=== PATIENT | female | born 1975 | race Caucasian/White ===

== ENCOUNTER 2016-11-16 10:46 | Emergency (ER) | payer BC ==
--- NOTE | ~2016-11-16 | CR63 ---
[facility]. [facility] A Service of [facility] & [facility] RADIOLOGY TEXT RESULTS PATIENT: JEANNINE ARNDT LOCATION: SED : 75 UNIT #: [id number] AGE: [address]: Stlain Jules MD SEX: F ORDER DR: [id number] [place] [id number] E MR#: [id number] Acc #: [id number] NAME: JEANNINE ARNDT : 1975 SEX: F STUDY DATE/TIME: 11/16/2016 12:33 UNIT: SED ROOM: STUDY DESCRIPTION: CR Chest 2 View Attending Physician: Stalin Jules M.D. Ordering Physician: Stalin Jules M.D. Primary Care Physician: Drew Dacosta M.D. MEDICAL IMAGING REPORT This report is preliminary unless electronic signature is present. EXAM Two-view chest 11/16/2016 HISTORY 41-year-old female with left-sided chest pain status post fall 1 week ago. COMPARISON Chest 08/28/2013 FINDINGS 2 views of the chest demonstrate clear lungs. No pleural effusion or pneumothorax. Heart size and mediastinum are normal. Pulmonary vasculature normal. IMPRESSION No acute cardiopulmonary findings Dictated by... Kristopher Patino M.D. THIS IS AN ELECTRONICALLY VERIFIED REPORT Kristopher Patino M.D. at 11/17/2016 5:06 PM GENIE/beck TD: 11/16/2016 21:50 JOB #: [id number] MEDICAL IMAGING REPORT Page 1 of 1
--- NOTE | ~2016-11-16 | CT2 ---
[facility] A Service of [facility] & [facility] RADIOLOGY TEXT RESULTS PATIENT: JEANNINE ARNDT LOCATION: SED : 75 UNIT #: [id number] AGE: [address]: Stalin Jules MD SEX: F ORDER DR: [id number] [address] [address] [id number] E MR#: [id number] Acc #: [id number] NAME: JEANNINE ARNDT : 1975 SEX: F STUDY DATE/TIME: 11/16/2016 12:32 UNIT: SED ROOM: STUDY DESCRIPTION: CT Abd and Pelv W Cont Attending Physician: Stalin Jules M.D. Ordering Physician: Stalin Jules M.D. Primary Care Physician: Drew Dacosta M.D. MEDICAL IMAGING REPORT This report is preliminary unless electronic signature is present. EXAM CT abdomen and pelvis with contrast 11/16/2016 1232 hours HISTORY 41-year-old complaining of abdominal pain and swelling for 1 week. Patient had a left rib injury 1 week ago when she fell against a metal railing. Left arm numbness, bruising at left hip. COMPARISON Chest CT 10/12/2008. No prior CT abdomen. TECHNIQUE Dynamic helical CT images were obtained from the lung bases through the pubic symphysis with intravenous contrast only. Sagittal and coronal reconstructions were performed. Contrast was Isovue-370 100 mL IV. Total exam DLP 958 mGy-cm. This CT examination was performed with one or more of the following radiation dose reduction techniques: automatic exposure control, adjustment of mA and/or kV according to patient size, and iterative reconstruction. FINDINGS Images through the lung bases are clear. There is no pleural effusion or pneumothorax. There is no definite rib fracture. There is an ovoid nodule in the lateral inferior left breast measuring 2.6 x 1.6 cm. This demonstrates a central hyperdensity which could represent a calcification or a previous clip from biopsy. This is not clearly seen on the CT chest of 10/12/2008. Suggest correlation with previous mammography and/or ultrasound. If this has not been performed, I would suggest a follow up mammogram and ultrasound to assess this mass which is well circumscribed. 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 Images through the abdomen demonstrate normal appearance to the liver, spleen, pancreas and bile ducts. The gallbladder is contracted but normal [facility] A Service of [facility] & [facility] RADIOLOGY TEXT RESULTS PATIENT: JEANNINE ARNDT LOCATION: SED : 75 UNIT #: [id number] AGE: [address]: Stalin Jules MD SEX: F ORDER DR: in appearance. The adrenal glands are normal. The kidneys enhance normally. There is no mass, stone or contusion. There is no ascites or adenopathy. The abdominal aorta is normal in caliber. Stomach and small bowel are normal. The appendix is normal. There is no colonic wall thickening or colonic distension. There is moderate stool throughout the colon. CT pelvis demonstrates an anteverted uterus with intrauterine device present. There is no adnexal mass or pelvic free fluid. Bone window images demonstrate no lumbar fracture or subluxation. There is degenerative disc disease at L5-S1 with concentric disc bulging, endplate spurring. There is no fracture of the sacrum or pelvis. IMPRESSION 1. No rib, lumbar spine, pelvic or hip fracture seen. 2. No acute abnormalities are seen in the abdomen or pelvis. 3. There is a 2.6 x 1.6 cm fairly well-circumscribed soft tissue nodule in the lower lateral left breast new from CT chest 10/12/2008. It has a central hyperdensity which could represent a calcification or perhaps a marker clip from previous biopsy. Correlate with any previous workup. If not previously evaluated or biopsied, suggest followup mammogram and ultrasound to reassess. STAT * RESULT Dictated by... Luz Maria Petty M.D. THIS IS AN ELECTRONICALLY VERIFIED REPORT Luz Maria Petty M.D. at 11/16/2016 2:23 PM TOOTIE/tiago TD: 11/16/2016 13:32 JOB #: [id number] MEDICAL IMAGING REPORT Page 1 of 1
[~2016-11-16 10:46] MED LIST: IBUPROFEN PO; SYNTHROID PO; TYLENOL325 M1 PO
[2016-11-16 11:43] LABS: URINE SOURCE CLEAN CATCH
[2016-11-16 11:45] LABS: BASOPHIL# 0.1 X10e3 (0-0.3); BASOPHIL% 1.1 % (0-2.5); EOSINOPHIL% 0.6 % (0.0-7.0); HEMATOCRIT 40.3 % (35.0-45.0); HEMOGLOBIN 13.8 gm/dL (12.0-16.0); LYMPHOCYTE# 1.5 X10e3 (1.0-3.5); LYMPHOCYTE% 23.8 % (17.0-45.0); MEAN CELL VOLUME 88.9 FL (83-96); MEAN CORPUSCULAR HEMOGLOBIN 30.4 PG (28-34); MEAN CORPUSCULAR HGB CONC 34.2 g/dL (30-36); MEAN PLATELET VOLUME 8.6 FL (6.5-11.5); MONOCYTE# 0.5 X10e3 (0-1.0); MONOCYTE% 7.1 % (3.0-12.0); NEUTROPHIL# 4.3 X10e3 (1.5-7.1); NEUTROPHIL% 67.4 % (40-75); PLATELET COUNT 206 X10e3 (140-420); RED BLOOD COUNT 4.53 X10e (3.90-5.30); WHITE BLOOD COUNT 6.5 X10e3 (4.0-10.5)
[2016-11-16 11:50] LABS: URINE APPEARANCE CLEAR; URINE BILIRUBIN NEG (NEG); URINE BLOOD 1+ (NEG); URINE COLOR YELLOW; URINE GLUCOSE NEG (NORM); URINE KETONE NEG (NEG); URINE LEUKOCYTE ESTERASE NEG (NEG); URINE NITRATE NEG (NEG); URINE PH 5.5 (5-8); URINE PROTEIN NEG (NEG); URINE UROBILINOGEN 0.2 MG/DL (NORM)
[2016-11-16 11:51] LABS: DIFF IND NO
[2016-11-16 11:52] LABS: MICRO INDICATED? YES
[2016-11-16 12:04] LABS: CULTURE INDICATED? YES; URINE BACTERIA 1+ (NEG); URINE SQUAMOUS EPITHELIAL CELL MANY /[HPF]
[2016-11-16 12:12] LABS: CALCIUM SERUM 9.1 mg/dL (8.4-10.2); CREATININE SERUM 0.5 mg/dL (0.6-1.4); GLOM FILT RATE Estimated 120.2 mL/min (>60); POTASSIUM 4.1 mmol/L (3.5-5.1)
== END 2016-11-16 13:49 | disposition home or self-care (01) ==
LOC: SED 10:46
PROVIDERS: Emergency Medicine
DX: S20.212A Contusion of left front wall of thorax, initial encounter (principal); S30.1XXA Contusion of abdominal wall, initial encounter; W22.8XXA Striking against or struck by other objects, initial encounter; Y92.009 Unspecified place in unspecified non-institutional (private) residence as the place of occurrence of the external cause
CPT/HCPCS: 36415; 71020; 74177; 80048; 81003; 84703; 85025; 87086; 96361; 96374; 96375; 99285; J1885; J2405; Q9967